=== PATIENT | female | born 2000 | race Caucasian/White ===

== ENCOUNTER 2023-04-17 15:32 | Emergency (ER) | payer OTHER ==
--- NOTE | 2023-04-17 15:42 | EDPHYS ---
Physician Documentation [facility] Name: Kiana Wren Age: 22 yrs Sex: Female : 2000 Arrival Date: 04/17/2023 Time: 15:32 Bed Waiting Private MD: ED Physician Inocente Vásquez HPI: 04/17 17:48 This 22 yrs old Female presents to ER via Ambulatory with complaints of Ear Pain. kb 17:48 The patient presents with pain, moderate. The complaints affect the left ear. Onset: kb The symptoms/episode began/occurred 2 day(s) ago. Modifying factors: The symptoms are alleviated by nothing, the symptoms are aggravated by nothing. Associated signs and symptoms: The patient has no apparent associated signs or symptoms. Severity of symptoms: At their worst the symptoms were moderate in the emergency department the symptoms are unchanged. The patient has not experienced similar symptoms in the past. The patient has not recently seen a physician. Historical: - Allergies: 15:41 No Known Allergies; ph - PMHx: 15:41 None; ph - PSHx: 15:41 None; ph - Immunization history:: Adult Immunizations unknown. - Social history:: Smoking status: Patient reports the use of cigarette tobacco products, smokes one-half pack cigarettes per day. ROS: 17:47 Constitutional: Negative for fever, chills, and weight loss. kb 17:47 ENT: Positive for ear pain. 17:47 All other systems are negative. Exam: 17:47 Constitutional: This is a well developed, well nourished patient who is awake, alert, kb and in no acute distress. Head/Face: Normocephalic, atraumatic. Cardiovascular: Regular rate and rhythm with a normal S1 and S2. No gallops, murmurs, or rubs. No pulse deficits. Respiratory: Respirations even and unlabored. No increased work of breathing. Talking in full sentences Skin: Warm, dry with normal turgor. Normal color. MS/ Extremity: Pulses equal, no cyanosis. Neurovascular intact. Full, normal range of motion. Neuro: Awake and alert, GCS 15, oriented to person, place, time, and situation. Moves all extremities. Normal gait. 17:47 ENT: External ear(s): are unremarkable, Ear canal(s): purulent discharge, that is minimal, in the left canal, swelling, that is moderate, of the left canal, TM's: are normal. Vital Signs: 15:38 BP 150 / 87; Pulse 92; Resp 18; Temp 98.5(O); Pulse Ox 100% on R/A; Weight 97.52 kg; ph Height 5 ft. 3 in. ; 15:38 Body Mass Index 38.09 (97.52 kg, 160.02 cm) ph MDM: 15:41 Patient medically screened. kb 17:47 Differential diagnosis: otitis media, otitis externa, ruptured TM, foreign body, acute kb otalgia. Data reviewed: vital signs, nurses notes. Counseling: I had a detailed discussion with the patient and/or guardian regarding: the historical points, exam findings, and any diagnostic results supporting the discharge/admit diagnosis, the need for outpatient follow up, a family practitioner, to return to the emergency department if symptoms worsen or persist or if there are any questions or concerns that arise at home. Administered Medications: No medications were administered Disposition: 17:58 Co-signature as Attending Physician, Inocente Vásquez DO I was immediately available on-site ms3 in the Emergency Department for consultation in the care of the patient. Disposition Summary: 04/17/23 15:41 Discharge Ordered Location: Home kb Condition: Stable kb Diagnosis - Unspecified otitis externa, left ear kb Followup: kb - With: Emergency Department - When: As needed - Reason: Worsening of condition Followup: kb - With: Private Physician - When: 2 - 3 days - Reason: Recheck today's complaints, Continuance of care, Re-evaluation by your physician Discharge Instructions: - Discharge Summary Sheet kb - Otitis Externa, Gwne-to-Oopf kb - Ear Drops, Adult, Ecao-me-Iomo kb Forms: - Medication Reconciliation Form kb - Thank You Letter kb - Antibiotic Education kb - Prescription Opioid Use kb Prescriptions: - Ciprodex 0.3-0.1 % Otic drops,suspension - instill 4 drops by OTIC route every 12 hours for 7 days , for ears ONLY; 1 kb unit; Refills: 0, Product Selection Permitted Signatures: Roberta Huerta, Elvi Ly RN RN ph Inocente Vásquez DO DO ms3
--- NOTE | 2023-04-17 15:42 | ER ---
Nurse's Notes [facility] Name: Kiana Wren Age: 22 yrs Sex: Female : 2000 Arrival Date: 04/17/2023 Time: 15:32 Bed Waiting Private MD: Diagnosis: Unspecified otitis externa, left ear Presentation: 04/17 15:38 Chief complaint: Patient states: L ear pain that started 2 days ago after swimming. ph Coronavirus screen: Vaccine status: Patient reports being unvaccinated. Ebola Screen: No symptoms or risks identified at this time. Initial Sepsis Screen: Does the patient meet any 2 criteria? No. Patient's initial sepsis screen is negative. Does the patient have a suspected source of infection? No. Patient's initial sepsis screen is negative. Risk Assessment: Do you want to hurt yourself or someone else? Patient reports no desire to harm self or others. Onset of symptoms was April 17, 2023. 15:38 Method Of Arrival: Ambulatory ph 15:38 Acuity: KALYANI 4 ph Triage Assessment: 15:41 General: Appears in no apparent distress. uncomfortable, Behavior is calm, cooperative, ph appropriate for age. Pain: Complains of pain in left ear. EENT: Reports pain in left ear. Neuro: Level of Consciousness is awake, alert, obeys commands, Oriented to person, place, time, situation. Cardiovascular: Capillary refill < 3 seconds in bilateral fingers Patient's skin is warm and dry. Respiratory: Airway is patent Respiratory effort is even, unlabored, Respiratory pattern is regular, symmetrical. Derm: Skin is pink, warm \T\ dry. Musculoskeletal: Circulation, motion, and sensation intact. Range of motion: intact in all extremities. Historical: - Allergies: 15:41 No Known Allergies; ph - PMHx: 15:41 None; ph - PSHx: 15:41 None; ph - Immunization history:: Adult Immunizations unknown. - Social history:: Smoking status: Patient reports the use of cigarette tobacco products, smokes one-half pack cigarettes per day. Screenin:45 [facility] ED Fall Risk Assessment (Adult) History of falling in the last 3 months, ph including since admission No falls in past 3 months (0 pts). Abuse screen: Denies threats or abuse. Denies injuries from another. Nutritional screening: No deficits noted. Tuberculosis screening: No symptoms or risk factors identified. Vital Signs: 15:38 BP 150 / 87; Pulse 92; Resp 18; Temp 98.5(O); Pulse Ox 100% on R/A; Weight 97.52 kg; ph Height 5 ft. 3 in. ; 15:38 Body Mass Index 38.09 (97.52 kg, 160.02 cm) ph ED Course: 15:37 Patient arrived in ED. im 15:37 [facility]erta [facility]C [facility] kb 15:37 Inocente Vásquez DO is Attending Physician. kb 15:41 Triage completed. ph 15:41 Arm band placed on. ph 15:45 Patient has correct armband on for positive identification. ph 15:45 No provider procedures requiring assistance completed. Patient did not have IV access ph during this emergency room visit. Administered Medications: No medications were administered Medication: 15:45 VIS not applicable for this client. ph Outcome: 15:41 Discharge ordered by MD. kb 15:45 Discharged to home ambulatory, with significant other. ph 15:45 Condition: good 15:45 Discharge instructions given to patient, Instructed on discharge instructions, follow up and referral plans. medication usage, Demonstrated understanding of instructions, follow-up care, medications, Prescriptions given X 1. 15:45 Patient left the ED. ph Signatures: Robreta Huerta FNP-C FNP-Ckb Hall, Patricia, RN RN ph Zandra Roe im
[2023-04-17 16:45] VITALS: BP 150/87; TEMP 98.5; O2SAT 100
== END 2023-04-17 15:45 | disposition home or self-care (01) ==
LOC: ER 15:32
DX: H60.92 Unspecified otitis externa, left ear (principal); F17.210 Nicotine dependence, cigarettes, uncomplicated
CPT/HCPCS: 99283